=== PATIENT | male | born 2005 | race Caucasian/White ===

== ENCOUNTER 2024-06-30 10:43 | Emergency (ER) | payer BC ==
[2024-06-30] MEDS ORDERED: Lidocaine 2% 20 ML MDV INFILT ONE (10:44)
[2024-06-30] MEDS: Lidocaine/Epineph/Tetracaine 3 ML Syringe TOP ONE (11:26)
[2024-06-30] MEDS ORDERED: Ondansetron 4 MG/2 ML SDV ONE (12:10)
[2024-06-30] MEDS: Ondansetron 4 MG Tab.DIS PO ONE (12:20)
== END 2024-06-30 12:38 | disposition home or self-care (01) ==
LOC: FB.ED 10:43
DX: S61.211A Laceration without foreign body of left index finger without damage to nail, initial encounter (principal); F17.210 Nicotine dependence, cigarettes, uncomplicated; W23.1XXA Caught, crushed, jammed, or pinched between stationary objects, initial encounter
CPT/HCPCS: 12001; 73130-LT; 99283; A9270-GY; J2003; Q0162